=== PATIENT | male | born 1965 | race Caucasian/White ===

== ENCOUNTER 2023-10-07 18:04 | Inpatient (IN) | payer SELFPAY ==
[2023-10-07] VITALS (23 sets, daily range): BP systolic 152–195; BP diastolic 116–150; BMI 28.1; BMI 24.2
[2023-10-07 14:18] LABS: % Basophils 0.3 % (0-2); % Immature Granulocytes 0.3 % (0-0.5); % Lymphocytes 15.2 % (20.5-51.1); % Monocytes 6.2 % (1.7-9.3); Absolute Monocytes 0.4 10^3/uL (0.1-0.6); Absolute Neutrophils 5.3 10^3/uL (1.4-6.5); Hemoglobin 12.2 g/dL (13.0-18.0); Mean Corp Hgb Conc. 34.9 g/dL (33.0-37.0); Mean Corpuscular Hgb 30.6 pg (27.0-31.0); Mean Corpuscular Volume 87.7 fL (80.0-94.0); Nucleated Red Blood Cells % 0 % (-); Platelet Count 244 10^3/uL (130-400); Red Blood Cell Count 3.99 10^6/uL (4.70-6.10); Red Cell Dist. Width 12.6 % (11.5-14.5); White Blood Cell Count 6.7 10^3/uL (4.8-10.8)
[2023-10-07 14:42] LABS: ALT (SGPT) 47 U/L (0-50); AST (SGOT) 37 U/L (17-59); Albumin 4.7 g/dl (3.5-5.0); Alkaline Phosphatase 63 U/L (38-126); Blood Urea Nitrogen 13 mg/dl (9-20); Calcium 9.5 mg/dl (8.4-10.2); Carbon Dioxide 23 mmol/L (22-30); Chloride 103 mmol/L (98-107); Glucose 111 mg/dl (70-99); Potassium 4.3 mmol/L (3.5-5.1); Sodium 136 mmol/L (135-145); Total Bilirubin 0.7 mg/dl (0.2-1.3); Total Protein 7.4 g/dl (6.3-8.2); eGFR > 60.00
[2023-10-07 14:51] LABS: Troponin I 0.018 ng/ml
--- NOTE | 2023-10-07 15:07 | ED.GENMED ---
History of Present Illness
General
Chief Complaint: Chest Pain
Source: patient
Exam Limitations: none
Time Seen by Provider: 10/07/23 15:06
Nursing documentation reviewed up to this point in time: agreed with
History of Present Illness
History of Present Illness:
Patient with history of GERD, presents to ED secondary to intermittent shortness of breath since yesterday evening. Shortly after waking up this morning with ongoing shortness of breath, around 9 AM, patient developed left-sided chest pain, with
intermittent bilateral arm and leg tingling sensation. Chest pain described as 'hand on my chest' sensation, nonradiating, without any alleviating or exacerbating factors. At the time of evaluation ED, patient states that his chest pain is
resolved, but still feels shortness of breath. Denies previous history of similar symptoms. However, when shortness of breath started while he was at home last night, patient attributed to 'panic attack', which he has had previously. Denies back
pain. Denies leg pain or swelling. Denies trauma. Denies recent travel or surgery. Patient admits to smoking cigar, but denies drinking alcohol. There is family history of heart disease. Denies recent illness. Patient has not seen his primary
care physician for over 2 years, as he has been relatively healthy.
Review of Systems
Review of Systems
Allergies reviewed?: Yes
All Other Systems: ROS reviewed and negative except as documented in HPI and ROS
Constitutional: Reports no symptoms
EENT: Reports no symptoms
Respiratory: Reports trouble breathing; Denies cough
Cardiac: Reports chest pain; Denies diaphoresis or palpitations
ABD/GI: Reports no symptoms; Denies nausea or vomiting
Musculoskeletal: Reports no symptoms; Denies edema
Skin: Reports no symptoms
Neurological: Reports numbness
Phy Exam
Physical Exam
Physical Exam:
Physical Exam
General: no apparent distress, not acutely ill. afebrile. hypertensive
Head: nc/at. eomi
Neck: supple. normal range of motion.
Heart: tachycardic, regular, no murmur. equal radial pulses.
Lungs: no acute respiratory distress. clear bilaterally
Abdomen: normal bowel sounds. not tender.
Neuro: alert and oriented. no focal neurological deficits
Skin: no rash
Psychiatric: well kept. interactive and cooperative
Extremities: no edema. no calf tenderness.
Scores
Heart Score for Chest Pain Patients
STEMI patient?: No
History: Moderately Suspicious
ECG: Normal
Age: >45 - <65 years
Risk Factors: 1 or 2 Risk Factors
Troponin: </= Normal Limit
Heart Score for Chest Pain Patients: 3
Heart Score Risk: 2.5% MACE over next 6 weeks
Course
Orders/Labs/Results
Orders:
Orders
10/07/23 13:57
ECG [Electrocardiogram (*1)] Urgent
Reason for Study: Chest Pain
EKG- Treatment ONCE
10/07/23 14:12
Complete Blood Count/With Diff Urgent
Comprehensive Metabolic Panel Urgent
Magnesium Urgent
Comment: TSH REFLEX & MAG ADDED ON BY FLOOR 3:20PM 10-07-23
TSH Reflex To Free T4 Urgent
Troponin I Urgent
10/07/23 Dinner
Sodium, 4 Gram (MOO)
At Your Request: Full Participation
Does patient need a safe tray?: No
10/07/23 15:21
Labetalol HCl [Trandate] 10 mg IV NOW STA
10/07/23 15:22
Add On- LAB Urgent
Tests Added?: TSH to reflex Free T4, magnesium, ProBNP
10/07/23 15:30
CR Chest - 2 Views Urgent
Comment:
Reason For Exam: CP with sob
10/07/23 15:36
D-Dimer Urgent
10/07/23 17:25
Labetalol HCl [Trandate] 10 mg IV NOW STA
10/07/23 17:28
Aspirin 325 mg PO NOW STA
10/07/23 17:50
Admit/Transfer Patient As Directed
Co-Sign Provider:
Level of Care: Inpatient admission
Assign to:: Telemetry
Physician / Group: Jose Ramon Fitzpatrick
Diagnosis: HTN urgency
Reason for Telemetry: Arrhythmia
Date to Stop Telemetry: 10/10/23
Time to Stop Telemetry: 11:00
Reason for Hospitalization: Hypertensive urgency causing chest pain and shortness of breath, signs of early
pulmonary congestion. Initiation on blood pressure regimen
Expected length of stay greater than two midnights?: Yes
ELOS- Estimated Length of Stay in days: 2
I certify the patient meets the requirements for IP care: Yes
PRN Pain Medication Management As Directed
May give lesser potent ordered pain med per pt: Yes
preference::
Protocol:: Medication orders for pain may be administered in a
manner that supports deferring to patient preference
when the pt is:
- Requesting an ordered lesser potent pain medication.
Least to most potent pain medications are defined
as: acetaminophen < NSAID < tramadol < opioids
(morphine, oxycodone, hydromorphone).
- Requesting a lesser dose of the same medication IF
ORDERED.
- Requesting a less intrusive route of administration
if both routes are prescribed by the provider (PO <
IV).
10/07/23 17:51
Code Status As Directed
Resuscitation Status: Full Code
10/07/23 17:54
HydrALAZINE [Apresoline] 10 mg IV Q6HPRN PRN
Labetalol HCl [Trandate] 10 mg IV Q6HPRN PRN
10/07/23 19:16
Acetaminophen [Tylenol] 650 mg PO Q4HPRN PRN
Bisacodyl [Dulcolax] 10 mg RECTAL [id number] PRN
Docusate W/Senna [Senokot-S] 1 tablet PO BIDPRN PRN
Enoxaparin Sodium [Lovenox] 40 mg SC QPM
Polyethylene Glycol Powder [Miralax] 17 grams PO DAILYPRN PRN
10/07/23 19:16
Activity As Directed
Activity Level: Out of Bed-Early Mobility
Vital Signs As Directed
Frequency: Per unit guidelines
Smoking Cessation Counseling [RESP] Routine
DX Deep Vein Thrombosis Video Routine
10/08/23 06:00
Basic Metabolic Panel IN AM
Complete Blood Count/With Diff IN AM
10/08/23 08:00
Ascorbic Acid [Vitamin C] 500 mg PO DAILY
Cholecalciferol (Vitamin D3) [VITAMIN D3 (cholecalciferol)] 25 mcg PO DAILY
Cyanocobalamin [Vitamin B-12] 1,000 mcg PO DAILY
Pantoprazole [Protonix] 40 mg PO DAILY
10/10/23 11:00
DC Protocol for Telemetry ONCE
Abnormal Lab Results
10/07/23
14:12
RBC 3.99 L 10^6/uL
(4.70-6.10)
Hgb 12.2 L g/dL
(13.0-18.0)
Hct 35.0 L %
(39.0-52.0)
Absolute Lymphs (auto) 1.0 L 10^3/uL
(1.2-3.4)
Neutrophils % 78.0 H %
(42.2-75.2)
Lymphocytes % 15.2 L %
(20.5-51.1)
Glucose 111 H mg/dl
(70-99)
10/07/23 14:12
10/07/23 14:12
Vital Signs
Initial and Last Documented VS:
Initial Vital Signs
Temp Pulse Resp BP Pulse Ox
98.2 F 120 22 195/150 98
10/07/23 14:02 10/07/23 14:02 10/07/23 14:02 10/07/23 14:02 10/07/23 14:02
Last Documented Vital Signs
Temp Pulse Resp BP Pulse Ox
98.1 F 97 16 168/122 97
10/07/23 19:20 10/07/23 19:20 10/07/23 19:20 10/07/23 19:35 10/07/23 19:20
MDM/Problems Addressed
MDM/Problems Addressed:
History and exam concerning for hypertensive urgency versus emergency. EKG without any acute changes. Minimally elevated troponin, likely secondary to uncontrolled hypertension, doubt ACS. As patient's hypertension persists, patient will be
admitted for further evaluation and treatment.
*EKG
Interpreted by ED Provider?: Yes
EKG Intrepretation Date: 10/07/23
Heart Rate: 126
Rate: tachycardiac
Rhythm: sinus
Mason: normal axis
Interval: normal interval
*Critical Care Note
Total Time (30-74mins, 75-104mins- exclusive of procedures): Not Applicable
ED Attending Note
-
Portions of this chart may have been created with voice recognition software.� Occasional wrong word or��sound alike� substitutions may have occurred due to the inherent limitations of voice recognition software.
Discharge Plan
Departure
Patient Disposition: Admit
Date of Disposition: 10/07/23
Time of Disposition: 17:28
Admit to: Telemetry
Presentation/result/management discussed w/ accepting MD/DO: Hospitalist
Discharge Problem:
Hypertensive urgency
Interventions
Interventions:
*Risk Screen - Suicide Last Done: 10/07/23 14:02
*General Assessment Last Done: 10/07/23 14:02
*Neglect/Abuse Screening Last Done: 10/07/23 14:02
ED- Fall Risk Assessment Last Done: 10/07/23 15:41
*ED COVID-19 Vaccine History Last Done: 10/07/23 15:41
*Nursing Disposition Last Done: 10/07/23 19:12
ED- Cardiac Assessment Last Done: 10/07/23 15:46
Discharge Date and Time
Discharge Date/Time: 10/07/23 19:12
[2023-10-07] MEDS: TRANDATE 10 MG IV ×2 (15:37→17:29)
--- NOTE | 2023-10-07 15:55 | EDRN ---
Pt stated to me at this time he is symptom free, no chest nightness, no SOB, no tingling, no palpitations. HR is now 110.
[2023-10-07 16:13] LABS: D-Dimer 0.48 ug/mlFEU (0.00-0.50)
--- NOTE | 2023-10-07 17:02 | EDRN ---
Informed Dr. Lazo that HR in the 90's and BP remains high diastolically over 110.
--- NOTE | 2023-10-07 17:25 | EDRN ---
Dr. Lazo in room w/pt at this time.
[2023-10-07] MEDS: ASPIRIN 325 MG PO (17:31)
--- NOTE | 2023-10-07 17:38 | EDRN ---
BP on L upper arm at 17:30 was 162/126 and at 17:34 on R upper arm 158/121. Dr. Lazo said to take BPs from now on the R upper arm even though IV access is in that arm.
--- NOTE | 2023-10-07 17:41 | EDRN ---
Dr. Lazo said okay to decrease frequency of taking BPs to 30 minutes which was also done.
--- NOTE | 2023-10-07 17:45 | HPS.HSE ---
Family Physician
-
Family Physician: * NONE
Chief Complaint
-
SOB + CP, began yesterday and worsened into today
History of Present Illness
Patient is a 58-year-old male with GERD who presented to the ED today with a complaint of intermittent shortness of breath.
Stated the symptoms started yesterday evening, noticed worsening this morning after waking up. At around 9 AM he developed left-sided chest pain and intermittent bilateral arm/leg tingling. Described the chest discomfort as a pressure sensation
without any alleviating or exacerbating factors. His chest pain had resolved by time he came to the ED though he still remains short of breath. Denies history of previous symptoms. [place] that he was having a panic attack last night, denies back
pain or a 'tearing sensation'. Denies any leg swelling, recent travels or surgeries. Currently smokes cigars, denies cigarette and alcohol use. States he has not seen a PCP in over 2 years, has been relatively healthy.
On arrival to the ED he was acutely hypertensive with blood pressure 195/150 mmHg, HR 110 to 120/min with NSR. He was otherwise hemodynamically stable and on room air with SpO2 in the high 90s. He was given 10 mg IV with improvement of blood
pressure down to labetalol 162/120 mmHg. ED labs showed hemoglobin 12.2, otherwise noncontributory. Troponin was negative. ECG with no acute ST changes or STEMI equivalents. Chest x-ray showed signs of increased vascular prominence though no
effusions, consolidation, pneumothorax upon my prelim read.
Medical History
Past Medical History
Past Medical History: Reports GERD
Past Surgical History: Reports Orthopedic
Social History
Tobacco: Smoker
Alcohol: None
Drug: None
Family History
Family History: Hypertension (Father)
Allergies / Home Medications
Allergies reflects when Allergies were last updated in [employer].
Home Medications with original date entered in [employer]
Allergy/Medication List:
NKDA
Review of Systems
-
History Source: Patient
A 12 point ROS was completed and negative except as noted: Yes
Constitutional: Reports No Symptoms
EENT: Reports No Symptoms
Respiratory: Reports No Symptoms
Cardiac: Reports No Symptoms
Abdomen/GI: Reports No Symptoms
: Reports No Symptoms
Musculoskeletal: Reports No Symptoms
Skin: Reports No Symptoms
Neurological: Reports No Symptoms
Endocrine: Reports No Symptoms
Hematologic/Lymphatic: Reports No Symptoms
Psych: Reports No Symptoms
Physical Exam
Vital Signs
Vital Signs
Temp Pulse Resp BP Pulse Ox
98.2 F 97 17 158/121 96
10/07/23 14:02 10/07/23 17:34 10/07/23 17:34 10/07/23 17:34 10/07/23 17:30
Physical Exam
General: Well Nourished, No Apparent Distress, Comfortable and Conversant
HEENT: NormoCephalic, Anicteric, Moist mucous membranes and Atraumatic
Respiratory: Clear and Non Labored Respirations; No Wheezes, Rales or Rhonchi
Cardiac: S1/S2 and Regular Rhythm; No Tachycardia, Murmur, Rub, Gallop or Peripheral Edema
GI: Soft, Non Tender, Non Distended and Normal Bowel Sounds
Musculoskeletal: No Clubbing, No Cyanosis and Other (No gross deformities)
Skin: Warm and Dry; No Rash or Jaundice
Neuro: AO x 3, Nonfocal/grossly intact and Cranial Nerves Intact; No Slurred Speech or Tremors
Laboratory Results
-
10/07/23 14:12
10/07/23 14:12
Laboratory Results
Total Bilirubin 0.7 mg/dl (0.2-1.3) 10/07/23 14:12
AST 37 U/L (17-59) 10/07/23 14:12
ALT 47 U/L (0-50) 10/07/23 14:12
Alkaline Phosphatase 63 U/L (38-126) 10/07/23 14:12
Troponin I 0.018 ng/ml 10/07/23 14:12
Data Reviewed
-
Diagnostic Radiology: Image Personally Visualized and interpreted and Discussed with Patient
Lab Data: Labs Reviewed by me and Discussed with Patient
Impression/Plan
-
#Hypertensive urgency -- significant diastolic hypertension out of proportion to systolic pressure, low pulse pressure; symptoms (+), no signs of end organ damage
#Dyspnea with interstitial prominence on x-ray
#Chest pain -- Resolved
-Suspect diastolic pressure increase is in the context of smoking history, overweight status versus compromised stroke-volume from afterload increase
-No previous history of hypertension, not on any antihypertensive
-BP on arrival was 195/150 mmHg, improved to 162/120 with labetalol
-Symptomatically is improved with blood pressure control
-Elevated double product on arrival, would benefit from dual beta/alpha antagonism
Plan
-Continue with labetalol as needed for SBP >180 mmHg, hold for heart rate <60
-Order echocardiogram to assess for LVH and signs of longstanding hypertension
-Plan for antihypertensive agent to begin in morning, with more hemodynamic data available
-Will consider HCTZ with either carvedilol for FAVIOLA/ARB if needed
-25% goal reduction in BP over first 24 hours
#Normocytic anemia
-No previous history, hemoglobin 12.2 on arrival
-No signs of bleeding or abnormal bruising
-Trend CBC
#GERD
-Home medications include esomeprazole 20 mg daily
-No history of Loyd's or erosive disease
-No red flag symptoms today
#Tobacco use
-Encourage cessation of cigar smoking
DVT prophylaxis: Lovenox
Diet: House, no added salt
CODE STATUS: Full code
Disposition: Admit to telemetry
I will be admitting Trevor Coyle to telemetry for hypertensive urgency. He has high risk of morbidity and mortality due to consequences of acute hypertension including myocardial ischemia, respiratory distress, neurological injury, and other
sources of endorgan damage. He will require ongoing monitoring of his hemodynamics with PRN IV antihypertensives for goal MAP reduction of 25% over the first day. He will require implementation of antihypertensive regimen prior to discharge. I
have spoken with the emergency department provider in regards to this case.
--- NOTE | 2023-10-07 18:01 | EDRN ---
Dr. Fitzpatrick in room w/pt at this time.
--- NOTE | 2023-10-07 18:38 | EDRN ---
BP cuff was changed to L arm w/ marce from Dr. Lazo due to IV access in R arm at this time as no true difference in the BPs.
--- NOTE | 2023-10-07 18:53 | EDRN ---
Dr. Fitzpatrick ordered apresoline and trandate for SBP > 180. Pt's SBP is under [address] Fitzpatrick if he wanted to address DBP w/ the apresoline and Trandate orders at this time.
--- NOTE | 2023-10-07 18:54 | EDRN ---
TT was read according to TT.
--- NOTE | 2023-10-07 19:05 | EDRN ---
Dr. Fitzpatrick responded to my text as below (cut and pasted from TT):
I think we can leave as is. His MAP is 25% or so reduced so we�re basically at goal for now. Just added the PRNs in case he spikes again.
6:54 PM
30 days left
He probably could use a diuretic but I�m waiting for morning to start bc I don�t want to drop BP too much
--- NOTE | 2023-10-07 19:30 | PTCARENOTE ---
Received pt from ED via stretcher. Pt ambulated to bathroom and bed independently. Pt complained of 6/10 L sided sharp, shooting chest pain. WAREHOUSE STOCKER made aware. Vital signs obtained, blood pressure elevated. ECG obtained, photo sent via tiger text to
WAREHOUSE STOCKER. Pt stated, 'The pain started when I was walking around but now that I am back in bed I don't feel it anymore'. Order for ECG PRN placed. AAOx3. Assessed and oriented to room. Pt verbalized understanding of call ludwig. Call ludwgi within close
reach. Will continue to monitor.
[2023-10-07] MEDS: LOVENOX 40 MG SC (21:46)
[2023-10-08] VITALS (11 sets, daily range): BP systolic 111–178; BP diastolic 45–136
--- NOTE | 2023-10-08 01:10 | PTCARENOTE ---
Pt rang call ludwig and informed this RN he does not feel well. Pt stated, 'Whenever I am about to fall asleep, I have trouble breathing'. Pt diaphoretic. No complaints of chest pain. Vital signs and ECG obtained. Pt feeling better. WASTE DISPOSAL ATTENDANT made aware,
no new orders provided. Will continue to monitor.
[2023-10-08 08:09] LABS: % Basophils 0.3 % (0-2); % Eosinophils 0.3 % (0-6); % Immature Granulocytes 0.2 % (0-0.5); % Lymphocytes 21.7 % (20.5-51.1); % Monocytes 6.7 % (1.7-9.3); % Neutrophils 70.8 % (42.2-75.2); Absolute Lymphocytes 1.3 10^3/uL (1.2-3.4); Absolute Monocytes 0.4 10^3/uL (0.1-0.6); Absolute Neutrophils 4.2 10^3/uL (1.4-6.5); Hematocrit 33.2 % (39.0-52.0); Hemoglobin 11.3 g/dL (13.0-18.0); Mean Corpuscular Hgb 30.2 pg (27.0-31.0); Mean Corpuscular Volume 88.8 fL (80.0-94.0); Mean Platelet Volume 10.7 fL (7.4-10.4); Nucleated Red Blood Cells % 0 % (-); Platelet Count 225 10^3/uL (130-400); Red Blood Cell Count 3.74 10^6/uL (4.70-6.10); Red Cell Dist. Width 12.9 % (11.5-14.5)
[2023-10-08] MEDS: COREG 3.125 MG PO (08:19)
[2023-10-08] MEDS: PROTONIX 40 MG PO (08:19)
[2023-10-08] MEDS: ORETIC 25 MG PO (08:20)
[2023-10-08] MEDS: VITAMIN D3 (cholecalciferol) 25 MCG PO (08:20)
[2023-10-08] MEDS: VITAMIN B-12 1000 MCG PO (08:20)
[2023-10-08] MEDS: VITAMIN C 500 MG PO (08:20)
[2023-10-08] MEDS: APRESOLINE 10 MG IV (08:25)
[2023-10-08 08:42] LABS: Blood Urea Nitrogen 17 mg/dl (9-20); Calcium 9.5 mg/dl (8.4-10.2); Carbon Dioxide 23 mmol/L (22-30); Chloride 104 mmol/L (98-107); Estimated Creatinine Clearance 97 ml/min; Glucose 101 mg/dl (70-99); Potassium 4.8 mmol/L (3.5-5.1); Sodium 137 mmol/L (135-145); eGFR > 60.00
[2023-10-08] MEDS: ATIVAN 0.5 MG PO (10:27)
--- NOTE | 2023-10-08 11:28 | PTCARENOTE ---
PT with BP 168/128, i manually rechecked bp for 187/137 HR 110-114 Sinus tach. PT admitted to being anxious. 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 He stated he took xanax 0.5 at home for panic
attacks and feels like he is going to have one. I did give him hydralazine IV as prescribed . Pt ordered both hydralazine and labetolol for same parameter > 180 sbp. I called pharmacy, they confirmed that as per what is written it appears md wants
pat to have both and recommended MD clarification . This nurse talked to , ordered ativan. PT stated the medication worked and he feels much better and relieved his anxiety. His Bp only 166/108. notified about two meds ordered and is making
changes now. PT started on coreg and HCT this am as well. he has been voiding frequently. PT lying in bed comfortable awaiting his sister.
--- NOTE | 2023-10-08 12:30 | W.PN.HOSP.TC ---
Today's Communication/Plan
-
Start carvedilol 3.125 and HCTZ 25
Labetalol as needed for SBP >160 mmHg
Ativan as needed for anxiety
Assessment / Plan
Assessment / Plan
#Hypertensive urgency -- significant diastolic hypertension out of proportion to systolic pressure, low pulse pressure; symptoms (+), no signs of end organ damage
#Dyspnea with interstitial prominence on x-ray
-Suspect diastolic pressure increase ifrom smoking history/overweight status v. compromised stroke-volume from afterload increase
-No previous history of hypertension, not on any antihypertensive regimen at home; BP 195/150 on arrival, 25% reduction of her first day
-Overnight did, symptomatic again with some shortness of breath though has not had any recurrence of tingling or chest pain
-Seems to be fairly anxious, both in general and related to his symptoms, question if this is contributing
-TTE was ordered, not done on the weekends here, may get as outpatient if BP improves this weekend
-ECG on arrival did show signs of left ventricular hypertrophy, suspect chronic HTN underlying
Plan
-Start carvedilol 3.125 mg twice daily, HCTZ 25 mg daily
-Continue with labetalol as needed for SBP >160
-Echocardiogram here versus outpatient
-Continue on telemetry
#Normocytic anemia
-No previous history, hemoglobin 12.2 on arrival
-No signs of bleeding or abnormal bruising
-Trend CBC
#GERD
-Home medications include esomeprazole 20 mg daily
-No history of Loyd's or erosive disease
-No red flag symptoms today
#Tobacco use
-Encourage cessation of cigar smoking
DVT prophylaxis: Lovenox
Diet: House, no added salt
CODE STATUS: Full code
Anticipated Discharge: 24 - 48 hours
Subjective/Interval History
-
Date of Service: October 08, 2023
Seen and examined at the bedside. Overnight he said he had brief recurrence of shortness of breath though not as bad as when he came into the hospital. Denies any chest pain, fevers or chills, nausea, vomiting, diarrhea, urinary issues,
paresthesias, muscle weakness, abnormal bleeding or bruising.
He does seem to get very anxious over the symptoms he is having. States that he does have history of panic attacks has been on benzodiazepine previously. Ordered Ativan as needed for anxiety
Objective Data
-
Labs:
Laboratory Results
10/08/23
06:29
WBC 6.0
Hgb 11.3 L
Hct 33.2 L
Plt Count 225
Sodium 137
Potassium 4.8
Chloride 104
Carbon Dioxide 23
BUN 17
Creatinine 1.1
Glucose 101 H
Calcium 9.5
Vital Signs:
Vital Signs
Temp Pulse Resp BP Pulse Ox
98.2 F 112 16 163/108 100
10/08/23 11:26 10/08/23 11:26 10/08/23 11:26 10/08/23 11:26 10/08/23 11:26
I&O
10/07/23 10/08/23 10/09/23
06:59 06:59 06:59
Intake Total 480 / 480
Balance 480 / 480
Review of Systems
-
History Source: Patient
All other systems: Reviewed and negative
Physical Exam
-
General: No Apparent Distress and Comfortable
HEENT: Normocephalic, Atraumatic, Moist Mucous Membranes and Anicteric
Respiratory: Clear to Auscultation and Non Labored Respirations; Negative Wheezes, Rales or Rhonchi
Cardiac: Regular Rhythm, S1/S2 and Tachycardic; Negative Murmur, Rub or Gallop
GI: Soft, Nontender, Nondistended and Normal Bowel Sounds
Musculoskeletal: No Clubbing, No Cyanosis and No Edema
Skin: Warm and Dry; Negative Rash or Jaundice
Neuro: AO x 3, Nonfocal/Grossly Intact and Central Nerve's Intact; Negative Tremors
Psych: Anxious
Data Reviewed
-
Labs: Labs Reviewed by me
--- NOTE | 2023-10-08 14:09 | CM ---
IA completed with pt at bedside.
Pt is a 58yr old male admitted with HTN urgency
Prior, pt lives alone in a [facility] with 1 step to enter.
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 Per pt, his bedroom is on the 2nd floor, but he does have the option of 1st floor set up.
Pt has no current/hx of DME/VN/SNF
Pt currently has no insurance coverage or a PCP; Financial Aide information provided to pt for dc assistance.
PLAN; dc to home with no needs
[2023-10-08] MEDS: TRANDATE 10 MG IV (16:02)
[2023-10-08] MEDS: TYLENOL 650 MG PO ×2 (16:02→21:04)
[2023-10-08] MEDS: LOVENOX 40 MG SC (16:56)
--- NOTE | 2023-10-08 17:05 | PTCARENOTE ---
BP 178/131 pt wtih 10/07 headache. tylenol and ice given, IV labetolol given. HR dec to 91 and bp now 158/112. PT now stating headach 05/07. aware and made medication changes. pt requesting cardiology consult, notified not ordered. Labs
ordered. pt resting in room eating diner feels better
[2023-10-08] MEDS: COREG 6.25 MG PO (21:04)
[2023-10-09 03:00] VITALS: BP 143/102
[2023-10-09 06:00] VITALS: BMI 23.2
[2023-10-09 06:13] LABS: % Basophils 0.5 % (0-2); % Eosinophils 1.1 % (0-6); % Immature Granulocytes 0.3 % (0-0.5); % Lymphocytes 21.6 % (20.5-51.1); % Monocytes 8.7 % (1.7-9.3); % Neutrophils 67.8 % (42.2-75.2); Absolute Eosinophils 0.1 10^3/uL (0-0.7); Absolute Lymphocytes 1.4 10^3/uL (1.2-3.4); Absolute Monocytes 0.6 10^3/uL (0.1-0.6); Absolute Neutrophils 4.3 10^3/uL (1.4-6.5); Hematocrit 35.8 % (39.0-52.0); Hemoglobin 12.5 g/dL (13.0-18.0); Mean Corp Hgb Conc. 34.9 g/dL (33.0-37.0); Mean Corpuscular Hgb 29.9 pg (27.0-31.0); Mean Corpuscular Volume 85.6 fL (80.0-94.0); Mean Platelet Volume 10.2 fL (7.4-10.4); Nucleated Red Blood Cells % 0 % (-); Platelet Count 235 10^3/uL (130-400); Red Blood Cell Count 4.18 10^6/uL (4.70-6.10); Red Cell Dist. Width 12.9 % (11.5-14.5); White Blood Cell Count 6.3 10^3/uL (4.8-10.8)
[2023-10-09 06:39] LABS: Blood Urea Nitrogen 18 mg/dl (9-20); Carbon Dioxide 28 mmol/L (22-30); Chloride 103 mmol/L (98-107); Estimated Creatinine Clearance 82 ml/min; Glucose 94 mg/dl (70-99); Potassium 4.7 mmol/L (3.5-5.1); Sodium 137 mmol/L (135-145); eGFR > 60.00
[2023-10-09 07:23] VITALS: BP 157/113
[2023-10-09] MEDS: ORETIC 50 MG PO (08:52)
[2023-10-09] MEDS: COREG 6.25 MG PO (08:52)
[2023-10-09] MEDS: VITAMIN D3 (cholecalciferol) 25 MCG PO (08:52)
[2023-10-09] MEDS: VITAMIN C 500 MG PO (08:52)
[2023-10-09] MEDS: PROTONIX 40 MG PO (08:52)
[2023-10-09] MEDS: VITAMIN B-12 1000 MCG PO (08:52)
[2023-10-09 10:52] VITALS: BP 147/107
--- NOTE | 2023-10-09 11:19 | W.PN.HOSP.TC ---
Today's Communication/Plan
-
Continue with carvedilol 6.25 twice daily, HCTZ 50
Monitor BP today, goal <150 over 100 mmHg
Possible discharge
Assessment / Plan
Assessment / Plan
#Hypertensive urgency
#Dyspnea with interstitial prominence on x-ray
-Suspect diastolic pressure increase ifrom smoking history/overweight status v. compromised stroke-volume from afterload increase
-No previous history of hypertension, not on any antihypertensive regimen at home; BP 195/150 on arrival, 25% reduction of her first day
-Over first night did, symptomatic again with some shortness of breath though has not had any recurrence of tingling or chest pain
-ECG upon arrival did show signs of LVH, suspect some chronicity to his hypertension; would benefit from TTE inpatient versus out
-Started on carvedilol 6.25 mg and hydrochlorothiazide 50 mg daily, blood pressure improving now
-Due to his symptoms being persistent, despite lower BP yesterday, I sent secondary hypertension workup
Plan
-Continue with carvedilol and hydrochlorothiazide at current doses
-If asymptomatic, BP at goal <150 over 100 mmHg, will consider DC later
-Should have an outpatient TTE if he is discharged, inpatient if he stays here
-Follow-up renin:aldosterone ratio, urine metanephrines
-Continue on telemetry while here
#Normocytic anemia
-No previous history, hemoglobin 12.2 on arrival
-No signs of bleeding or abnormal bruising
-CBC stable
#GERD
-Home medications include esomeprazole 20 mg daily
-No history of Loyd's or erosive disease
-No red flag symptoms today
#Tobacco use
-Encourage cessation of cigar smoking
DVT prophylaxis: Lovenox
Diet: House, no added salt
CODE STATUS: Full code
Anticipated Discharge: Within 24 hours
Subjective/Interval History
-
Date of Service: October 09, 2023
Seen and examined at the bedside. No acute events. He states that he had a really good night and is no longer having the symptoms that he presented with. He was able to sleep well, denies having any recurrence of shortness of breath, chest
pain/palpitations, paresthetic feelings. He also denies gastrointestinal issues, urinary issues, fevers or chills, abnormal bleeding or bruising, weakness.
He is concerned, now that he does not have symptoms, that his blood pressure is still high as it has likely been running high for quite some time. I told him that now that we know it is an issue we can manage it.
Objective Data
-
Labs:
Laboratory Results
10/09/23
05:52
WBC 6.3
Hgb 12.5 L
Hct 35.8 L
Plt Count 235
Sodium 137
Potassium 4.7
Chloride 103
Carbon Dioxide 28
BUN 18
Creatinine 1.3
Glucose 94
Calcium 10.0
Vital Signs:
Vital Signs
Temp Pulse Resp BP Pulse Ox
98.6 F 94 17 147/107 95
10/09/23 10:52 10/09/23 10:52 10/09/23 10:52 10/09/23 10:52 10/09/23 10:52
I&O
10/08/23 10/09/23 10/10/23
06:59 06:59 06:59
Intake Total 480 / 480 2640 / 2640
Output Total 1400 / 1400
Balance 480 / 480 1240 / 1240
Review of Systems
-
History Source: Patient
All other systems: Reviewed and negative
Physical Exam
-
General: No Apparent Distress and Comfortable; Negative Respiratory Distress or Pain
HEENT: Normocephalic, Atraumatic, Moist Mucous Membranes and Anicteric
Respiratory: Clear to Auscultation and Non Labored Respirations; Negative Wheezes, Rales or Rhonchi
Cardiac: Regular Rhythm and S1/S2; Negative Murmur, Rub, JVD or Gallop
GI: Soft, Nontender, Nondistended and Normal Bowel Sounds
Musculoskeletal: No Clubbing, No Cyanosis and No Edema
Skin: Warm and Dry; Negative Rash or Jaundice
Neuro: AO x 3, Nonfocal/Grossly Intact and Central Nerve's Intact
Hematologic / Lymphatic: No Lymphadenopathy
Psych: Calm
Data Reviewed
-
Labs: Labs Reviewed by me and Discussed with Patient
--- NOTE | 2023-10-09 14:25 | W.DCSUMMARY ---
Discharge Summary
Discharge Data
Date of Admission: 10/07/23
Date of Discharge: 10/09/23
-
Pending Results: Yes
Additional Pending Results:
Renin/aldosterone ratio
Urine metanephrine panel
Hospital Course
Presented to the hospital with accelerated hypertension and BP 195/150 mmHg upon arrival to the ED, and he was persistently tachycardic with heart rate 110.. Was symptomatic with headache, transient chest pain, and shortness of breath however no
laboratory or imaging evidence of endorgan damage. Was started on labetalol as needed with goal reduction of 25% MAP over first 24 hours which was achieved. Patient remained symptomatic despite blood pressure improvement. Was restarted on
carvedilol and hydrochlorothiazide on day 2, still remains symptomatic with elevated blood pressures near 160/120 mmHg. Due to persistent symptoms, diastolic elevation of blood pressure, secondary causes were assessed with workup sent for primary
aldosteronism and pheochromocytoma. Thyroid panel was normal on arrival, low suspicion as cause.
Prison through day 2 his blood pressure started to improve and his symptoms disappeared. By day 3 of hospital stay he was asymptomatic, blood pressure had improved to range of 150/110 mmHg. Suspect ongoing anxiety, hospitalization contributing to
his presentation as well. Patient felt comfortable for discharge, was sent on carvedilol 6.25 mg twice daily, hydrochlorothiazide 50 mg daily. Vitals at time of DC 147/107 mmHg, heart rate 84.
Advised him to follow-up with primary care doctor for titration of medications. Start home ambulatory blood monitoring. Record values and take to PCP office at next appointment. If he develop recurrence of symptoms, he was advised to go to the
closest emergency department for reevaluation
Discharge Plan
-
Patient Disposition: Home (Routine Discharge)
Discharge Diagnosis/Procedures: Hypertensive urgency
Condition: Good
Diet: 2 Gram Sodium
Additional Diets: Speak with ginner about optimizing diet
Activity: As tolerated
Additional Activity: Start slow, build activity level gradually
Driving Restrictions: As prior to admission
Bathing Restrictions: None
Blood Work: Labs pending: Renin/aldosterone ratio, urine metanephrines
Others Tests: N/A
Specialty Instructions: Weigh Daily- Call MD for wt gain/loss 3 lbs overnight/5 lbs in 1 week
Activity Restrictions/Additional Instructions:
Take home blood pressure once in the morning and once in the afternoon. Right measurement in a notebook and take to your primary care doctor. Make sure you rest for 15 minutes, take blood pressure seated with arm at the level of the heart.
If you develop recurrence of your symptoms, including shortness of breath or chest pain, then come back to the emergency department for reevaluation.
Instructions: High blood pressure in adults, Low-sodium diet
Referrals:
Jack Early MD [Active] -
Syed Alvarado MD [Non-Admitting Privileges] - in two to three days (May be a far drive. 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 They may have better options for pricing or may except more insurances)
NONE,* [Family Provider] -
Additional Discharge Medication Instructions: Start carvedilol 6.25 mg twice daily
Start hydrochlorothiazide 50 mg daily
Prescriptions:
New
lorazepam 0.5 mg Tablet
0.5 mg PO Q8HPRN PRN (Reason: anxiety) 3 Days Qty: 10 0RF
carvedilol 6.25 mg Tablet
6.25 mg PO BID 30 Days Qty: 60 0RF
hydrochlorothiazide 50 mg Tablet
50 mg PO DAILY 30 Days Qty: 30 0RF
(DME) Blood Pressure Cuff Misc
See Rx Instructions .Route Qty: 1 0RF
Rx Instructions:
As directed
(DME) blood pressure monitor Kit
See Rx Instructions .Route Qty: 1 0RF
Rx Instructions:
As directed
Continued
cyanocobalamin (vitamin B-12) 1,000 mcg Tablet
1,000 mcg PO DAILY
ascorbic acid (vitamin C) [Vitamin C] 500 mg Tablet
500 mg PO DAILY
magnesium 250 mg Tablet
250 mg PO DAILY
esomeprazole magnesium [Nexium] 20 mg Capsule,Delayed Release(Dr/Ec)
20 mg PO DAILY
cholecalciferol (vitamin D3) 25 mcg (1,000 unit) Tablet
25 mcg PO DAILY
Discontinued
vitamin E 268 mg (400 unit) Capsule
268 mg PO DAILY
potassium
1 tab PO DAILY
Discharge Orders:
Discharge Patient (As Directed); Ordered 10/09/23
Ordered By: Jose Ramon Fitzpatrick
Discharge Date and Time
Print Language: [place]
--- NOTE | 2023-10-09 14:52 | CM ---
Pt for dc today.
Has family transport home.
[employer] resource as well as Patient Financial Aide number provided for bill payment
No further needs identified.
[2023-10-09 14:57] VITALS: BP 143/98
[2023-10-12 07:38] LABS: Aldosterone, Serum 3.7 ng/dL; Aldosterone/Renin Activ Ratio 5.3 ratio (<=25.0); Renin Activity Results 0.7 ng/mL/hr
== END 2023-10-09 16:15 | disposition home or self-care (01) | DRG 305 ==
LOC: 3 WEST ACU 18:04
PROVIDERS: Physician Assistant; ADMITTING PHYSICIAN Internal Medicine; EMERGENCY PHYSICIAN Emergency Medicine
DX: I16.0 Hypertensive urgency (principal); I10 Essential (primary) hypertension; D64.9 Anemia, unspecified; K21.9 Gastro-esophageal reflux disease without esophagitis; F17.290 Nicotine dependence, other tobacco product, uncomplicated; F41.9 Anxiety disorder, unspecified; Z82.49 Family history of ischemic heart disease and other diseases of the circulatory system
CPT/HCPCS: 71046; 80048; 80053; 82088; 83735; 83835; 84244; 84443; 84484; 85025; 85379; 93005; 96374; 96376; 99285